=== PATIENT | female | born 1985 | race Two or more races ===

== ENCOUNTER 2025-03-11 01:35 | Emergency (ER) | payer BC, OTHER ==
[~2025-03-11] VITALS: Ht 154.9 cm; Wt 81.7 kg
--- NOTE | 2025-03-11 01:57 | ED.PDOC ---
HPI Allergic reaction HPI Comments C/C of allergic reaction since 1900, 03/10/25. Family states pt had shellfish accidentally. Noted orbital edema, and itchiness. Pt satting at 100% on room air, speaking in clear even sentences. No cardiac or respiratory distress noted. VSS Time Seen by MD: 01:41 Reviewed Notes: Nurses Notes, Medications, Allergies Allergies: Coded Allergies: Shellfish Allergy (Verified Allergy, Severe, 03/11/25) Information Source: Patient Past Medical History PAST MEDICAL HISTORY: Denies Surgical History: Denies all surgeries HOSPICE SPIRITUAL CARE COORDINATOR History: No Pertinent HOSPICE SPIRITUAL CARE COORDINATOR History Family History Family History: Unknown Social History Smoker: Non-Smoker Alcohol: Denies ETOH Use Drugs: Denies Drug Use Constitutional: denies: chills, diaphoresis, fatigue, fever, malaise, sweats, weakness, others EENTM: reports: throat swelling; denies: blurred vision, double vision, ear bleeding, ear discharge, ear drainage, ear pain, ear ringing, eye pain, eye redness, hearing loss, mouth pain, mouth swelling, nasal discharge, nose bleeding, nose congestion, nose pain, photophobia, tearing, throat pain, voice changes, others Respiratory: denies: cough, hemoptysis, orthopnea, SOB at rest, shortness of breath, SOB with excertion, stridor, wheezing, others Cardiovascular: denies: chest pain, dizzy spells, diaphoresis, Dyspnea on exertion, edema, irregular heart beat, left arm pain, lightheadedness, palpitations, PND, syncope, others Gastrointestinal: denies: abdomen distended, abdominal pain, blood streaked bowels, constipated, diarrhea, dysphagia, difficulty swallowing, hematemesis, melena, nausea, poor appetite, poor fluid intake, rectal bleeding, rectal pain, vomiting, others Genitourinary: denies: abnormal vagina bleeding, burning, dyspareunia, dysuria, flank pain, frequency, hematuria, incontinence, pain, , vagina discharge, urgency, others Neurological: denies: dizziness, fainting, headache, left sided numbness, left sided weakness, numbness, paresthesia, pre-existing deficit, right sided numbness, right sided weakness, seizure, speech problems, tingling, tremors, weakness, others Musculoskeletal: denies: back pain, gout, joint pain, joint swelling, muscle pain, muscle stiffness, neck pain, others Integumetry: denies: bruises, change in color, change in hair/nails, dryness, laceration, lesions, lumps, rash, wounds, others Allergic/Immunocompromised: denies: Difficulty Healing, Frequent Infections, Hives, Itching, others Hematologic/Lymphatic: denies: anemia, blood clots, easy bleeding, easy bruising, swollen glands, others Endocrine: denies: excessive hunger, excessive sweating, excessive thirst, excessive urination, flushing, intolerance to cold, intolerance to heat, unexplained weight gain, unexplained weight loss, others Psychiatric: denies: anxiety, bipolar disorder, depression, hopeless, panic disorder, schizophrenia, sleepless, suicidal, others Physical Exam General Appearance: No Apparent Distress, Normal HEENT: Normal ENT Inspection, Pharynx Normal, TMs Normal Neck: Full Range of Motion, Non-Tender Respiratory: Chest Non-Tender, Lungs Clear, No Accessory Muscle Use, No Respiratory Distress, Normal Breath Sounds Cardiovascular: No Edema, No JVD, No Murmur, No Gallop, Normal Peripheral Pulses, Regular Rate/Rhythm Breast Exam: Deferred Gastrointestinal: No Organomegaly, Non Tender, No Pulsatile Mass, Normal Bowel Sounds, Soft Genitalia: Deferred Pelvic: Deferred Rectal: Deferred Extremities: Normal capillary refill, Normal inspection, Normal range of motion, Non-tender, No pedal edema Musculoskeletal : Apperance: Normal Neurologic: Alert, machine chain maker II-XII nml as Tested, No Motor Deficits, Normal Affect, Normal Mood, No Sensory Deficits Cerebellar Function: Normal Reflexes: Normal Skin: Dry, Normal Color, Warm Lymphatic: No Adenopathy Was a procedure done? Was a procedure done?: No Differential diagnosis (all) Differential Diagnosis: Angioedema, Bronchospasm, Hypotension, Shock, Urticaria X-Ray, Labs, Meds, VS Vital Signs Date Time Temp Pulse Resp B/P (MAP) Pulse Ox O2 Delivery O2 Flow Rate FiO2 03/11/25 02:01 Room Air 03/11/25 02:01 16 100 Room Air* 0 21 03/11/25 02:01 99.7 97 16 143/90 (107) 100 99.7 03/11/25 02:01 99.7 97 16 143/90 (107) 100 99.7 Current Medications Medications (Trade) Dose Ordered Sig/Alonso Route Start Time Stop Time Status Last Admin Methylprednisolone Sodium Succinate (Solu Medrol) 125 mg ONCE ONCE IV 03/11/25 02:15 03/11/25 02:16 DC 03/11/25 02:35 Famotidine (Pepcid Injection) 20 mg ONCE ONCE IV 03/11/25 02:15 03/11/25 02:16 DC 03/11/25 02:35 Diphenhydramine HCl (Benadryl Injection) 25 mg ONCE ONCE IV 03/11/25 02:15 03/11/25 02:16 DC 03/11/25 02:35 Sodium Chloride 1,000 ml @ 1,000 mls/hr Q1H ONCE IV 03/11/25 02:15 03/11/25 03:14 03/11/25 02:34 X-Ray, Labs, Meds, VS Comment PATIENT GIVEN SOLU-MEDROL 125 MG IV, PEPCID 40 MG IV, AND BENADRYL 25 MG IV ALONG WITH NORMAL SALINE 1000 ML BOLUS. PATIENT REPORTS IMPROVEMENT SYMPTOMS SHE NOTES THE THROAT DOES NOT FEEL SWOLLEN ANYMORE ABLE TO SWALLOW DENIES CHEST PAIN DIFFICULTY BREATHING SHORTNESS OF BREATH SHE IS REQUESTING DISCHARGE WITH HER HAS BEEN AT THIS TIME. SCRIPT MEDROL DOSEPAK AND PEPCID TO PHARMACY ADVISED ON SIDE EFFECTS TAKE MEDICATIONS PRESCRIBED. REST INCREASE P.O. FLUIDS WITH ELECTROLYTES. AVOID ALL SHELLFISH FOLLOW UP WITH HER PCP IN 2 DAYS CONSIDER REFERRAL TO [facility] ER RETURN PRECAUTIONS GIVEN PATIENT INDICATES UNDERSTANDING AGREES WITH DISCHARGE PLAN OF CARE. Time of 1ST Reevaluation: 01:57 Reevaluation 1ST: Unchanged Reevaluation 2ND: Improved Patient Education/Counseling: Diagnosis, Treatment, Prognosis, Need For Follow Up Family Education/Counseling: Diagnosis, Treatment, Prognosis, Need For Follow Up Departure 1 Departure Time of Disposition: 02:59 Impression: Primary Impression: Allergic reaction Qualified Codes: T78.40XA - Allergy, unspecified, initial encounter Disposition: HOME / SELF CARE / HOMELESS Condition: Stable e-Prescriptions Famotidine (PEPCID TABLET) 20 Mg Tb 1 TAB PO BID for 6 Days, #12 TAB Prov: MARY BETH DOWNS REPAIR SERVICE DISPATCHER 03/11/25 Methylprednisolone (Medrol Dosepak) 4 Mg Baltazar 4 MG PO UD for 6 Days, #21 TAB UAD Prov: MARY BETH DOWNS REPAIR SERVICE DISPATCHER 03/11/25 Discharged With: Significant Other Critical Care Note Critical Care Time?: No Stability Stability form required: MARY BETH Alvarez Mar 11, 2025 01:57
[2025-03-11 02:01] VITALS: BP 143/90; PULSE 97; RESP 16; TEMP 99.7; O2SAT 100
[2025-03-11] MEDS: SODIUM CHLORIDE 0.9% 1,000 ML IV ONE (02:34)
[2025-03-11] MEDS: FAMOTIDINE (10MG/ML) 2ML VL IV ONE (02:35)
[2025-03-11] MEDS: methylPREDNISolone SOD SUCC 125 MG/2 ML VL IV ONE (02:35)
[2025-03-11] MEDS: diphenhdrAMINE HCL 50 MG/1 ML VL IV ONE (02:35)
[2025-03-11] MEDS ORDERED: FAMO20TA10 PO (03:04)
[2025-03-11] MEDS ORDERED: METH4PAK PO (03:04)
== END 2025-03-11 03:15 | disposition home or self-care (01) ==
LOC: ER 01:35
DX: T78.40XA Allergy, unspecified, initial encounter (principal); Z91.013 Allergy to seafood; X58.XXXA Exposure to other specified factors, initial encounter
CPT/HCPCS: 96361; 96374; 96375; 99284; J1200; J2919; J3490; J7030